=== PATIENT | female | born 1945 | race Caucasian/White ===

== ENCOUNTER 2023-07-01 18:05 | Emergency (ER) | payer MEDICAID, OTHER ==
[~2023-07-01] VITALS: Ht 152.4 cm; Wt 67.1 kg
[2023-07-01 18:54] VITALS: BP 143/89; PULSE 66; RESP 18; TEMP 97.4; O2SAT 95
[2023-07-01 22:15] VITALS: BP 125/89; PULSE 72; RESP 18; TEMP 97; O2SAT 98
== END 2023-07-01 22:15 | disposition home or self-care (01) ==
LOC: MED 18:05
DX: S09.90XA Unspecified injury of head, initial encounter (principal); K21.9 Gastro-esophageal reflux disease without esophagitis; I10 Essential (primary) hypertension; Z79.899 Other long term (current) drug therapy; Z90.710 Acquired absence of both cervix and uterus; X58.XXXA Exposure to other specified factors, initial encounter; Y93.89 Activity, other specified; Y92.89 Other specified places as the place of occurrence of the external cause; Y99.8 Other external cause status
CPT/HCPCS: 70450; 99284